=== PATIENT | female | born 1950 | race Caucasian/White ===

== ENCOUNTER 2016-09-11 07:38 | Day surgery (SDC) | payer MEDICARE, OTHER ==
[2016-09-10 15:45] VITALS: BMI 22.7
[~2016-09-11] VITALS: Ht 154.9 cm; Wt 57.2 kg
[2016-09-11] VITALS (9 sets, daily range): BP systolic 110–148; BP diastolic 69–77; PULSE 69–80; RESP 14–32; Ht 154.9 cm; Wt 57.2 kg
--- NOTE | 2016-09-11 07:30 | HPN ---
Date/Time of Note Date/Time of Note DATE: 09/11/16 TIME: 07:30 Interval H&P Admission Note Pt. seen H&P reviewed: No system changes AUDELIA TORRES MD Sep 11, 2016 07:30
[~2016-09-11 07:38] MED LIST: AMLO-145 PO; ASPI-535 PO; BRIM10DR2 BOTH EYES; BRIMONIDINE; DORZ1DRO6 BOTH EYES; IBUP800T25 PO; L-THYROXIN PO; LATA2.5D2 BOTH EYES; RAMI5CAP46 PO; SIMV-39 PO; [UNRECOGNIZED DRUG - OTHER] PO
[2016-09-11] MEDS ORDERED: SIMV5TAB50 PO (08:15)
[2016-09-11] MEDS ORDERED: CALC-74 PO (08:18)
[2016-09-11] MEDS ORDERED: GENTAMICIN 80 MG INJ ONE (08:59)
[2016-09-11] MEDS ORDERED: LIDOCAINE 1%/EPI 30 ML INJ ONE (08:59)
[2016-09-11] MEDS ORDERED: BUPIVACAINE 0.25% (MPF) 30 ML INJ ONE (08:59)
[2016-09-11] MEDS ORDERED: MUPIROCIN 2% 15 GM CR ONE (09:00)
[2016-09-11] MEDS ORDERED: POLYMYXIN/BACITRACIN 1L IRRIG ONE (09:32)
[2016-09-11] MEDS ORDERED: FENTAnyl 50 MCG/ML VIAL ONE (10:03)
[2016-09-11] MEDS ORDERED: MIDAZOLAM 1 MG/ML 2 ML INJ ONE (10:03)
[2016-09-11] MEDS ORDERED: PROPOFOL 60 ML ONE (10:03)
[2016-09-11] MEDS ORDERED: BUPIVACAINE 0.25% (MPF) 30 ML INJ INJ ONE (10:12)
[2016-09-11] MEDS ORDERED: ONDANSETRON 4 MG INJ ONE (10:33)
[2016-09-11] MEDS ORDERED: METOCLOPRAMIDE 10 MG INJ ONE (10:33)
[2016-09-11] MEDS ORDERED: KETOROLAC 30 MG INJ ONE (10:33)
[2016-09-11] MEDS ORDERED: DEXAMETHASONE 4 MG/ML 1 ML INJ ONE (10:33)
[2016-09-11] MEDS ORDERED: CEFAZOLIN 1 GM INJ ONE (10:33)
[2016-09-11] MEDS ORDERED: PHENYLephrine (100 MCG/ML) 5ML SYG ONE ×2 (10:34→11:06)
[2016-09-11] MEDS ORDERED: MUPIROCIN 2% 15 GM CR TOP ONE (11:22)
[2016-09-11] MEDS ORDERED: HYDROmorphONE (0.2 MG/ML) 10ML SYG IV PRN ×2 (11:30)
[2016-09-11] MEDS ORDERED: morphine (1 MG/ML) 10ML SYRINGE IV PRN ×2 (11:30)
[2016-09-11] MEDS ORDERED: ONDANSETRON 4 MG INJ IV PRN (11:30)
--- NOTE | 2016-09-11 12:51 | OPR ---
DATE OF OPERATION: 09/11/2016 PREOPERATIVE DIAGNOSIS: Basal cell carcinoma, right upper lip. POSTOPERATIVE DIAGNOSIS: Basal cell carcinoma, right upper lip. OPERATION PERFORMED: 1. Wide excision of basal cell carcinoma, right upper lip (2.1 cm x 0.8 cm) with frozen section mar gin control. 2. Fasciocutaneous flap reconstruction, right upper lip. 3. Application of full-thickness skin graft to right upper lip from left base of neck. SURGEON: Audelia Garza MD CHOCOLATE COATER: None. ANESTHESIA: Monitored anesthesia care with intravenous sedation. ANESTHESIOLOGIST: Jaspreet Buchanan MD LOCAL ANESTHETIC INFILTRATION FOR PAIN MANAGEMENT: 20 mL of 0.5% lidocaine, 0.125% Marcaine and 1:2 00,000 epinephrine solution. ESTIMATED BLOOD LOSS: 3 mL. SPECIMEN: None. DRESSING: Tie-over on skin graft with Bactroban cream, dry sterile dressing, and Tegaderm. OPERATIVE PROCEDURE: The patient received 2 grams of intravenous Ancef as preoperative antibiotic. Also with the patient in sitting position in the holding area, markings were made for the planned p rocedure. In the operating room with the patient in supine position, following monitoring and appli cation of adequate level of monitored anesthesia care with intravenous sedation by Dr. Buchanan, anes thesiologist, adequate amount of local anesthetic solution was injected at the base and periphery of operative areas in order to provide pain control. Next, following routine prep and drape and surgical pause, operation was started by excision of basa l cell carcinoma from right upper lip as marked. This specimen was marked at the position of 12 o'c lock, which represented the most superior segment of specimen, this was handed to Dr. Ashley pathol ogist, for frozen section and permanent slides. Following result of frozen section, operative area was irrigated using copious amount of triple antibiotic solution. Hemostasis was carefully checked and assured. At this time, primary intention was not possible due to the deformity and severe tensi on that caused significant concern about postoperative dehiscence due to the size, location and dire ction of the defect. Therefore, a double advancement fasciocutaneous flap had to be elevated. Thes e were advanced and inset using interrupted stitches of 4-0 Monocryl to reduce the size of the defec t successfully to less than half of its original size. The remainder of this defect was successfull y reconstructed using application of a full-thickness skin graft that was harvested from the left ba se of neck adjacent to an existing scar of the previous operation. This was defatted, vent hole was placed, and was placed over the recipient area and fixed in place using interrupted and continuous stitches of 6-0 Monocryl. Repair was found to be satisfactory upon its completion. Dressings were placed as mentioned above. The patient tolerated this procedure very well and left the operating ro om to the recovery room awake, stable, and in comfortable satisfactory and stable condition Report of frozen section per Dino Ashley MD, pathologist, showed all margins free of tumor. Dictated By: AUDELIA ALVAREZ/ROSE Conf#: [id number] DID#: [id number] CC: AUDELIA GARZA MD;*EndCC*
[2016-09-11] MEDS ORDERED: OXYCODONE/ACETAMINOPHEN (5/325) TAB PO PRN (18:00)
== END 2016-09-11 15:06 | disposition home or self-care (01) ==
LOC: SDS 07:38
PROVIDERS: ATTEND Plastic Surgery
DX: L90.5 Scar conditions and fibrosis of skin (principal); Z85.89 Personal history of malignant neoplasm of other organs and systems
CPT/HCPCS: 11443; 15732; 88305; 88331; J0690; J1100; J1580; J1885; J2250; J2370; J2405; J2765; J3010

== ENCOUNTER 2018-12-24 14:31 | Emergency (ER) | payer MEDICARE, OTHER ==
[~2018-12-24] VITALS: Ht 154.9 cm; Wt 54.4 kg
[~2018-12-24 14:31] MED LIST changes: -BRIMONIDINE; +CALC-74 PO; -DORZ1DRO6 BOTH EYES; +DORZ1DRO7 BOTH EYES; -IBUP800T25 PO; +IBUP800T48 PO; -L-THYROXIN PO; -RAMI5CAP46 PO; +RAMI5CAP64 PO; -SIMV-39 PO; +SIMV5TAB14 PO; -[UNRECOGNIZED DRUG - OTHER] PO
[2018-12-24 14:40] VITALS: Ht 154.9 cm; Wt 54.4 kg
[2018-12-24] MEDS ORDERED: AMLO-147 PO (16:46)
[2018-12-24] MEDS ORDERED: ASPI-817 PO (16:46)
[2018-12-24] MEDS ORDERED: METH-493 PO (16:47)
[2018-12-24] MEDS ORDERED: RAMI10CA48 PO (16:47)
[2018-12-24] MEDS ORDERED: SIMV10TA PO (16:48)
[2018-12-24] MEDS ORDERED: DORZ10DR6 BOTH EYES (16:48)
[2018-12-24] MEDS ORDERED: SOD CHLORIDE 0.9% 500 ML IV STA (17:10)
--- NOTE | 2018-12-24 17:10 | ERD ---
ER Documentation Chief Complaint Chief Complaint DIZZINESS X 2 EPISODES SINCE FRIDAY HPI 68-year-old female presenting with episodes of dizziness over the past few days. About 3 days ago she had a momentary sudden onset of dizziness, and she felt like she was about the fall. However that resolved within 1 minute. She had 2 other episodes within the last 3 days. This is without exertion. No other associated symptoms. Denies any associated vision disturbance, nausea, vomiting, tinnitus, earache, chest pain, focal weakness or numbness. She is able to walk without any difficulty. She states that all of these episodes have lasted only 1 minute. She has had a TIA 10 years ago. She recently had carotid ultrasound and echocardiogram done within the past 1 year and everything was normal per the patient. ROS All systems reviewed and are negative except as per history of present illness. Medications Home Meds Reported Medications Dorzolamide/Timolol* (Dorzolamide/Timolol*) 10 Ml Drops, 1 DROP BOTH EYES BID, #1 EA 12/24/18 Simvastatin* (Zocor*) 10 Mg Tablet, 10 MG PO QHS, #30 TAB 12/24/18 Ramipril (Ramipril) 10 Mg Capsule, 10 MG PO DAILY, CAP 12/24/18 Methimazole* (Methimazole*) 5 Mg Tablet, 5 MG PO DAILY, TAB 12/24/18 Aspirin* (Aspirin* EC) 81 Mg Tablet.dr, 81 MG PO DAILY, TAB 12/24/18 Amlodipine Besylate* (Amlodipine Besylate*) 10 Mg Tablet, 10 MG PO DAILY, #30 TAB 12/24/18 Discontinued Reported Medications Calcium Carbonate-Vit D3-Minerals (Calcium 600 + D + Minerals) 1 Each Tablet, 1 TAB PO DAILY, TAB 09/11/16 Simvastatin* (Simvastatin*) 5 Mg Tablet, 5 MG PO QHS, #30 TAB 09/11/16 Dorzolamide-Timolol* (Cosopt*) 2%-0.5% Pres Free Droperette, 1 DROP BOTH EYES BID, DROP 05/15/16 Brimonidine/Timolol* (Combigan*) 10 Ml Drops, 1 DROP BOTH EYES BID, EA 05/15/16 Latanoprost (Latanoprost) 2.5 Ml Drops, 1 DROP BOTH EYES QHS, #1 BOTTLE 05/15/16 Amlodipine Besylate* (Amlodipine Besylate*) 5 Mg Tablet, 10 MG PO DAILY, TAB 12/17/13 Ramipril (Ramipril) 5 Mg Capsule, 10 MG PO DAILY, CAP 12/17/13 Aspirin Ec (Aspir 81) 81 Mg Tablet.dr, 81 MG PO DAILY 12/17/13 Discontinued Scripts Ibuprofen* (Motrin*) 800 Mg Tab, 800 MG PO Q6H PRN for PAIN AND OR ELEVATED TEMP, #30 TAB Prov:ROSIE VASQUEZ DO 03/15/16 Allergies Allergies: Coded Allergies: No Known Allergy (Unverified , 12/24/18) PMhx/Soc History of Surgery: Yes Anesthesia Reaction: No Hx Neurological Disorder: Yes (TIA 10 yrs ago) Hx Respiratory Disorders: No Hx Cardiac Disorders: Yes (hypertension) Hx Psychiatric Problems: No Hx Miscellaneous Medical Probl: Yes (History of "abnormal EKG") Hx Alcohol Use: No Hx Substance Use: No Hx Tobacco Use: No Smoking Status: Former smoker FmHx Family History: No diabetes Physical Exam Vitals Vital Signs Date Temp Pulse Resp B/P (MAP) Pulse Ox O2 O2 Flow FiO2 Time Delivery Rate 12/24/18 99.4 99 18 136/63 97 14:40 (87) Physical Exam Const: No acute distress Head: Atraumatic Eyes: Normal Conjunctiva, PERRLA, EOMI, no nystagmus. ENT: Normal External Ears, Nose and Mouth. Neck: Full range of motion. No meningismus. Resp: Clear to auscultation bilaterally Cardio: Regular rate and rhythm, no murmurs. 2+ distal pulses in all 4 extremities Abd: Soft, non tender, non distended. Normal bowel sounds Skin: No petechiae or rashes Back: No midline or flank tenderness Ext: No cyanosis, or edema Neur: Awake and alert, oriented x3, normal speech, cranial nerves intact, strength and sensations intact in all 4 extremities. Normal cerebellar exam with rapid alternating movements, [id number], and [id number]. Normal steady gait. Psych: Normal Mood and Affect Result Diagram: 12/24/18 1730 12/24/18 1730 Results 24 hrs Laboratory Tests Test 12/24/18 17:30 White Blood Count 7.8 10^3/ul Red Blood Count 4.31 10^6/ul Hemoglobin 13.2 g/dl Hematocrit 40.1 % Mean Corpuscular Volume 93.0 fl Mean Corpuscular Hemoglobin 30.6 pg Mean Corpuscular Hemoglobin Concent 32.9 g/dl Red Cell Distribution Width 11.7 % Platelet Count 301 10^3/UL Mean Platelet Volume 10.2 fl Immature Granulocytes % 0.400 % Neutrophils % 67.9 % Lymphocytes % 22.8 % Monocytes % 6.4 % Eosinophils % 1.9 % Basophils % 0.6 % Nucleated Red Blood Cells % 0.0 /100WBC Immature Granulocytes # 0.030 10^3/ul Neutrophils # 5.3 10^3/ul Lymphocytes # 1.8 10^3/ul Monocytes # 0.5 10^3/ul Eosinophils # 0.2 10^3/ul Basophils # 0.1 10^3/ul Nucleated Red Blood Cells # 0.0 10^3/ul Sodium Level 142 mmol/L Potassium Level 3.6 mmol/L Chloride Level 106 mmol/L Carbon Dioxide Level 25 mmol/L Anion Gap 11 Blood Urea Nitrogen 15 mg/dl Creatinine 0.49 mg/dl Est Glomerular Filtrat Rate mL/min > 60 mL/min Glucose Level 178 mg/dl Calcium Level 9.1 mg/dl Troponin I < 0.012 ng/ml Current Medications Medications Dose Sig/Cherelle Start Time Status Last (Trade) Ordered Route PRN Stop Time Admin Dose Reason Admin Sodium 500 ml @ Q1H STAT 12/24/18 DC 12/24/18 Chloride 500 mls/hr IV 17:10 12/24/18 17:25 18:09 Procedures/MDM EMERGENT LABS AND DIAGNOSTIC STUDIES: Lab Results above were reviewed and interpreted by me. CBC: no anemia or evidence of infection BMP: No e/o clinically significant electrolyte abnormality severe acidosis, alkalosis, renal failure, diabetic ketoacidosis Troponin within normal limits, not indicative of cardiac ischemia 12-lead EKG was interpreted by Kirby Pichardo MD: Normal Sinus Rhythm with ventricular rate of 75 beats per minute Right bundle branch block No acute ST or T wave changes suggestive of acute ischemia or STEMI. Radiology Results as interpreted by Radiology below were reviewed by Tim Pichardo MD: Chest x-ray shows no acute abnormalities Initial Nursing notes reviewed. Previous Medical Records requested via the Electronic Health Record. EMERGENCY DEPARTMENT COURSE / MEDICAL DECISION MAKING: Patient is presenting complaining of intermittent dizziness over the past few days. Vitals are unremarkable. Her neurologic exam was completely normal. Although the patient has a history of TIA, I have a low suspicion for TIA, stroke, dissection, intracranial hemorrhage, arrhythmia, or cardiac ischemia. L ow suspicion for pulmonary embolism. Labs did not show any significant abnormalities. EKG showed right bundle branch block, patient states that she has had this before on EKGs. Currently she is asymptomatic and ambulating with a steady gait. I feel the patient is stable for discharge. She is already on aspirin. I recommended follow-up with her primary care doctor within the next 2 days and to return if any of her symptoms recur or are persistent. Patient is agreeable with this plan. Patient's blood pressure was elevated (>120/80) but appears stable without evidence of hypertensive emergency or urgency. The patient was counseled about the risks of hypertension and urged to pursue outpatient monitoring and therapy within a week with their primary care physician. Departure Diagnosis: Primary Impression: Dizziness Condition: Stable YANELIS PICHARDO MD Dec 24, 2018 17:05
[2018-12-24 18:27] VITALS: BP 134/85; PULSE 78; RESP 18
== END 2018-12-24 19:14 | disposition home or self-care (01) ==
LOC: E/R 14:31
DX: R42 Dizziness and giddiness (principal); I10 Essential (primary) hypertension; Z86.73 Personal history of transient ischemic attack (TIA), and cerebral infarction without residual deficits; Z87.891 Personal history of nicotine dependence; Z79.82 Long term (current) use of aspirin
CPT/HCPCS: 36415; 71045; 80048; 84484; 85025; 99285; J7040

== ENCOUNTER 2018-12-31 14:41 | Emergency (ER) | payer MEDICARE, OTHER ==
[~2018-12-31] VITALS: Wt 56.1 kg
[~2018-12-31 14:41] MED LIST changes: -AMLO-145 PO; +AMLO-147 PO; -ASPI-535 PO; +ASPI-817 PO; -BRIM10DR2 BOTH EYES; -CALC-74 PO; +DORZ10DR6 BOTH EYES; -DORZ1DRO7 BOTH EYES; -IBUP800T48 PO; -LATA2.5D2 BOTH EYES; +METH-493 PO; +RAMI10CA48 PO; -RAMI5CAP64 PO; +SIMV10TA PO; -SIMV5TAB14 PO
[2018-12-31 14:47] VITALS: BP 176/74; PULSE 84; RESP 18
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
== END 2018-12-31 18:12 | disposition home or self-care (01) ==
LOC: FTE 14:41
DX: I10 Essential (primary) hypertension (principal); Z85.828 Personal history of other malignant neoplasm of skin; Z79.82 Long term (current) use of aspirin; Z87.891 Personal history of nicotine dependence; Z86.73 Personal history of transient ischemic attack (TIA), and cerebral infarction without residual deficits
CPT/HCPCS: 70450